=== PATIENT | female | born 1955 | race Caucasian/White ===

== ENCOUNTER 2016-12-21 09:14 | Emergency (ER) | payer OTHER ==
[2016-12-21] MEDS ORDERED: NORMAL SALINE 1000 ML 2,000 ML IV ONE (09:41)
--- NOTE | 2016-12-21 09:59 | RADIOLOGY REPORT (SQ) ---
EXAM DESCRIPTION: CHEST SINGLE VIEW COMPLETED DATE/TIME: 12/21/2016 9:50 am REASON FOR STUDY: bed 12 sepsis protocol COMPARISON: None. EXAM PARAMETERS: NUMBER OF VIEWS: One view. TECHNIQUE: Single frontal radiographic view of the chest acquired. RADIATION DOSE: NA LIMITATIONS: None. FINDINGS: LUNGS AND PLEURA: No opacities, masses or pneumothorax. No pleural effusion. MEDIASTINUM AND HILAR STRUCTURES: No masses. Contour normal. HEART AND VASCULAR STRUCTURES: Heart normal in size. Normal vasculature. BONES: No acute findings. HARDWARE: None in the chest. OTHER: No other significant finding. IMPRESSION: NO ACUTE RADIOGRAPHIC FINDING IN THE CHEST. TECHNICAL DOCUMENTATION: JOB ID: [id number]
[2016-12-21 10:21] LABS: HEMATOCRIT 49.2 % (36.0-47.0); HEMOGLOBIN 16.6 g/dL (12.0-15.5); HGB HCT DIFFERENCE 0.6; MEAN CORPUSCULAR HEMOGLOBIN 30.9 pg (27.0-33.4); MEAN CORPUSCULAR HGB CONC 33.8 g/dL (32.0-36.0); MEAN CORPUSCULAR VOLUME 91 fl (80-97); RED BLOOD COUNT 5.38 10^6/uL (3.72-5.28); RED CELL DISTRIBUTION WIDTH 12.8 % (11.5-14.0)
[2016-12-21 10:28] LABS: VENOUS BLOOD BASE EXCESS -1.1 mmol/L; VENOUS BLOOD HCO3 23.1 mmol/L (20-32); VENOUS BLOOD PCO2 37.2 mmHg (35-63); VENOUS BLOOD PH 7.41 (7.30-7.42)
[2016-12-21 10:36] LABS: PROTHROMBIN TIME 15.2 SEC (11.4-15.4)
[2016-12-21 10:43] LABS: ALANINE AMINOTRANSFERASE 10 U/L (9-52); ALBUMIN 3.5 g/dL (3.5-5.0); ALKALINE PHOSPHATASE 92 U/L (38-126); ANION GAP 19 (5-19); ASPARTATE AMINO TRANSFERASE 14 U/L (14-36); BILIRUBIN,DIRECT 0.6 mg/dL (0.0-0.4); BILIRUBIN,TOTAL 1.6 mg/dL (0.2-1.3); BLOOD UREA NITROGEN 15 mg/dL (7-20); CALCIUM 9.4 mg/dL (8.4-10.2); CARBON DIOXIDE 21 mmol/L (22-30); CHLORIDE 90 mmol/L (98-107); CREATINE KINASE 24 U/L (30-135); CREATININE RESULT 0.87 mg/dL (0.52-1.25); GLUCOSE 349 mg/dL (75-110); MAGNESIUM 1.4 mg/dL (1.6-2.3); SODIUM 129.8 mmol/L (137-145); TOTAL PROTEIN 6.2 g/dL (6.3-8.2)
[2016-12-21 10:46] LABS: BAND NEUTROPHILS % (MANUAL) 8 % (3-5); BASOPHILS % (MANUAL) 0 % (0-2); EOSINOPHILS % (MANUAL) 0 % (0-6); LYMPHOCYTES % (MANUAL) 3 % (13-45); TOTAL CELLS COUNTED 100; TOXIC GRANULATION 1+; TOXIC VACUOLATION PRESENT
[2016-12-21 10:47] LABS: PLATELET CLUMPS PRESENT
[2016-12-21 10:49] LABS: BURR CELLS SLIGHT; POIKILOCYTOSIS SLIGHT
[2016-12-21 10:55] LABS: WHITE BLOOD COUNT 31.9 10^3/uL (4.0-10.5)
[2016-12-21] MEDS ORDERED: NORMAL SALINE 1000 ML 500 ML IV ONE (10:55)
[2016-12-21 11:07] LABS: CREATINE KINASE MB 0.52 ng/mL (<4.55)
[2016-12-21 11:09] LABS: TROPONIN I < 0.012 ng/mL
[2016-12-21] MEDS ORDERED: PIPERACILLIN/TAZOBACTAM 4.5 GM VIAL IV ONE (11:20)
--- NOTE | 2016-12-21 11:34 | RADIOLOGY REPORT (SQ) ---
EXAM DESCRIPTION: VENOUS UNILATERAL LOWER COMPLETED DATE/TIME: 12/21/2016 11:26 am REASON FOR STUDY: new onset left leg pain, tachycardia COMPARISON: None. TECHNIQUE: Dynamic and static barney scale and color images acquired of the left leg venous system. Se lected spectral images acquired with additional compression and augmentation maneuvers. The contralat eral common femoral vein and saphenofemoral junction were also imaged. Images stored on PACS. LIMITATIONS: None. FINDINGS: LEFT COMMON FEMORAL: Normal phasicity, compression and augmentation. No visualized echogenic material on g ray scale. No defects on color images. FEMORAL: Normal compression and augmentation. No visualized echogenic material on barney scale. No defe cts on color images. POPLITEAL: Normal compression, augmentation. No visualized echogenic material on barney scale. No defec ts on color images. CALF VESSELS: Normal compression, augmentation. No visualized echogenic material on barney scale. No de fects on color images. GSV and SSV: Normal compression, augmentation. No visualized echogenic material on barney scale. No def ects on color images. ANY DEEP VENOUS INSUFFICIENCY: Not evaluated. ANY EVIDENCE OF POPLITEAL CYST: No. OTHER: No other significant finding. RIGHT COMMON FEMORAL VEIN AND SAPHENOFEMORAL JUNCTION: Normal phasicity, compression and augmentation. No visualized echogenic material on barney scale. No de fects on color images. IMPRESSION: NO EVIDENCE OF DVT OR SVT IN THE LEFT LEG. TECHNICAL DOCUMENTATION: JOB ID: [id number] [employer]- All Rights Reserved
[2016-12-21 11:49] LABS: APPEARANCE,URINE TURBID; BILIRUBIN,URINE NEGATIVE (NEGATIVE); GLUCOSE, URINE >=500 mg/dL (NEGATIVE); KETONES,URINE TRACE mg/dL (NEGATIVE); LEUKOCYTE ESTERASE,URINE LARGE (NEGATIVE); NITRITE,URINE NEGATIVE (NEGATIVE); PROTEIN,URINE >=500 mg/dL (NEGATIVE); URINE SPECIFIC GRAVITY 1.009; UROBILINOGEN,URINE NEGATIVE mg/dL (<2.0)
--- NOTE | 2016-12-21 12:01 | ER Document Report ---
ED General - General Chief Complaint: Weakness Stated Complaint: WEAKNESS Time Seen by Provider: 12/21/16 09:41 Notes: Patient is a 61 year old female who presents to the ED complaining of weakness and generalized fatigue for the past 4-5 days. She states that her and her recently drove down from [place] November 10- arriving in [place]. She states over the past couple of days she has had right calf pain that she describes as a constant ache without trauma, LE swelling. She denies any fevers, chills, shortness of breath, chest pain, difficulty breathing, nausea, vomting, abdominal pain, flank pain, pyuria, urinary frequency, urgency hematuria, vaginal bleeding or discharge. PMH: chronic back and left knee pain, IDDM, HTN, migraines PSH: denies SH: current smoker, denies etoh, drug use PCP is in [place] TRAVEL OUTSIDE OF THE [place] IN LAST 30 DAYS: No - Related Data Allergies/Adverse Reactions: No Known Allergies Allergy (Verified 12/21/16 10:08) Home Medications: Current Home Medications Insulin Aspart Protam & Aspart [Novolog Mix 70-30 Vial] 100 unit SQ DAILY [History] Metformin HCl 500 mg PO DAILY 12/21/16 [History] Past Medical History - Social History Smoking Status: Current Every Day Smoker Chew tobacco use (# tins/day): No Frequency of alcohol use: None Drug Abuse: None Family History: Reviewed & Not Pertinent - Past Medical History Cardiac Medical History: Reports: Hx Hypertension Endocrine Medical History: Reports: Hx Diabetes Mellitus Type 2 Renal/ Medical History: Denies: Hx Peritoneal Dialysis Surgical Hx: Negative Review of Systems - Review of Systems Constitutional: See HPI EENT: No symptoms reported Cardiovascular: No symptoms reported Respiratory: No symptoms reported Gastrointestinal: No symptoms reported Genitourinary: No symptoms reported Female Genitourinary: No symptoms reported Musculoskeletal: No symptoms reported Skin: No symptoms reported Hematologic/Lymphatic: No symptoms reported Neurological/Psychological: No symptoms reported -: Yes All other systems reviewed and negative Physical Exam - Vital signs Vitals: Temp Pulse Resp BP Pulse Ox 97.8 F 128 H 28 H 83/55 L 97 12/21/16 09:23 12/21/16 09:23 12/21/16 09:23 12/21/16 09:23 12/21/16 09:23 Interpretation: Hypotensive, Tachycardic. No: Febrile - repeat of rectal was 103.1 - Notes Notes: PHYSICAL EXAM GENERAL: Alert, interacts well. HEAD: Normocephalic, atraumatic. EYES: Pupils equal, round, and reactive to light. Extraocular movements intact. ENT: Oral mucosa moist, tongue midline. NECK: Full range of motion. Supple. Trachea midline. LUNGS: Clear to auscultation bilaterally, no wheezes, rales, or rhonchi. No respiratory distress. HEART: Regular rate and rhythm. No murmurs, gallops, or rubs. ABDOMEN: Soft, nondistended, nontender. No guarding, rebound, or rigidity.. Bowel sounds present in all 4 quadrants. EXTREMITIES: Moves all 4 extremities spontaneously. No edema, radial and dorsalis pedis pulses 2/4 bilaterally. No cyanosis. NEUROLOGICAL: Alert and oriented x4. Normal speech. PSYCH: Normal affect, normal mood. SKIN: Warm, dry, normal turgor. No rashes or lesions noted. - General General appearance: Appears well, Alert In distress: None Course - Re-evaluation Re-evalutation: 12/21/16 12:01 Patient is a 61-year-old female who presents complaining of generalized weakness and fatigue for the past couple of days. Given patient's travel history and tachycardia was concerning for possible DVT or PE. Patient does meet sepsis criteria therefore sepsis protocol was initiated. No evidence of DVT on ultrasound and no evidence of PE noted on CT of the chest. Patient does have lab eval significant for severe sepsis. CBC with white blood cell count 31.9 with left shift without anemia. Chemistry panel shows stable renal function, mild elevation in LFTs but stable. Lactic is 4.5. Patient has received Zosyn for broad-spectrum coverage. Urinalysis shows evidence of concern for urinary tract infection and associated pyelonephritis with presence of white blood cell clumps. CT the abdomen report was called to me by reading radiologist Dr. Malone who stated concern for bladder thickening with associated bilateral hydronephrosis and hydroureter worse on the right with associated fat stranding. Could not rule out evidence of bladder tumor or obstruction. No evidence of stones. Recommendation is for urology evaluation for cystoscopy and possible stent placement. She also noticed thickening of her endometrial tissue which might warrant biopsy given patient's age. educated patient on results and indication that transfer to a facility with urology is warranted given that we do not have urology filling station attendant. 12/21/16 13:30 Case has been discussed with medical records director Dr. Dillon. Patient has [facility] under attending Dr. Pelletier. Given patient's evidence of cyst serous sepsis without shock recommending urgent transfer for urology evaluation. Patient to be kept n.p.o. and to monitor in the department. Patient educated on status and agrees with plan 12/21/16 14:07 Patient one with bed assignment in [facility] in the stepdown unit and transport available for 4 PM 12/21/16 14:45 patient complaining of feeling cold even though she is under multiple blankets. Rectal temp was obtained and was 103.1, she has received ME acetaminophen. VSS 12/21/16 16:08 Patient required assistance for a dressing change at 1530 where she was hypotensive to 82/56 but recovered to 104/61 with positioning. She has received 3.5L total and remains tachycardic at 115 with a pressure of 85-95 systolic. At this time will initiate a levophed drip at 8mcg/min. [facility] updated of this status. Patient upgraded to ICU status under Dr. Eduardo Hyatt. Dr. Hare has requested addition of Vancomycin prior to transfer. 12/21/16 17:43 Flight team arrived at bedside, patient clinically feels well, HDS on levo gtt at 4mcg/min with systolics of 95-115, tachycardic 115-120. Assessed by Dr. Henderson at the bedside and stable for transport. - Vital Signs Vital signs: Temp Pulse Resp BP Pulse Ox 102.4 F H 128 H 29 H 131/70 H 97 12/21/16 15:51 12/21/16 09:23 12/21/16 17:21 12/21/16 17:21 12/21/16 17:21 - Laboratory Result Diagrams: 12/21/16 09:41 12/21/16 09:41 Laboratory results interpreted by me: 12/21/16 12/21/16 12/21/16 09:41 09:41 09:48 WBC 31.9 H* RBC 5.38 H Hgb 16.6 H Hct 49.2 H Seg Neuts % (Manual) 82 H Band Neutrophils % 8 H Lymphocytes % (Manual) 3 L Metamyelocytes % 1 H Abs Neuts (Manual) 29.0 H Abs Monocytes (Manual) 1.9 H Sodium 129.8 L Chloride 90 L Carbon Dioxide 21 L Glucose 349 H POC Glucose 339 H Lactic Acid Magnesium 1.4 L Total Bilirubin 1.6 H Direct Bilirubin 0.6 H Creatine Kinase 24 L Total Protein 6.2 L Urine Protein Urine Glucose (UA) Urine Ketones Urine Blood Ur Leukocyte Esterase 12/21/16 12/21/16 12/21/16 10:10 11:25 13:40 WBC RBC Hgb Hct Seg Neuts % (Manual) Band Neutrophils % Lymphocytes % (Manual) Metamyelocytes % Abs Neuts (Manual) Abs Monocytes (Manual) Sodium Chloride Carbon Dioxide Glucose POC Glucose Lactic Acid 4.5 H 4.4 H Magnesium Total Bilirubin Direct Bilirubin Creatine Kinase Total Protein Urine Protein >=500 H Urine Glucose (UA) >=500 H Urine Ketones TRACE H Urine Blood LARGE H Ur Leukocyte Esterase LARGE H 12/21/16 15:56 WBC RBC Hgb Hct Seg Neuts % (Manual) Band Neutrophils % Lymphocytes % (Manual) Metamyelocytes % Abs Neuts (Manual) Abs Monocytes (Manual) Sodium Chloride Carbon Dioxide Glucose POC Glucose 204 H Lactic Acid Magnesium Total Bilirubin Direct Bilirubin Creatine Kinase Total Protein Urine Protein Urine Glucose (UA) Urine Ketones Urine Blood Ur Leukocyte Esterase - Diagnostic Test Radiology reviewed: Image reviewed, Reports reviewed - EKG Interpretation by Me EKG shows normal: Sinus rhythm Rate: Tachycardia Rhythm: NSR When compared to previous EKG there are: No significant change Discharge - Discharge Clinical Impression: Pyelonephritis Sepsis Qualifiers: Sepsis type: sepsis due to unspecified organism Qualified Code(s): A41.9 - Sepsis, unspecified organism Condition: Stable Disposition: [facility]
--- NOTE | 2016-12-21 12:03 | RADIOLOGY REPORT (SQ) ---
EXAM DESCRIPTION: CTA CHEST COMPLETED DATE/TIME: 12/21/2016 11:44 am REASON FOR STUDY: tachycardia, recent long travel COMPARISON: None. TECHNIQUE: CT scan of the chest performed using helical scanning technique with dynamic intravenous contrast injection. Images reviewed with lung, soft tissue and bone windows. Reconstructed coronal and sagittal MPR images reviewed. Additional 3 dimensional post-processing performed to develop Maximal Intensity Projection images (OR P). All images stored on PACS. All CT scanners at this facility use dose modulation, iterative reconstruction, and/or weight based d osing when appropriate to reduce radiation dose to as low as reasonably achievable (ALARA). [facility]: Dose Right [facility]: CareDose [facility]: Dose Right [facility]: Teradose 4D [facility]: Qlue CONTRAST TYPE AND DOSE: contrast/concentration: Isovue 370.00 mg/ml; Total Contrast Delivered: 73.0 ml; Total Saline Delivered: 100.2 ml Contrast bolus optimized for the pulmonary arteries. Not diagnostic for the aorta. RENAL FUNCTION: Creatinine 0.87 RADIATION DOSE: Up-to-date CT equipment and radiation dose reduction techniques were employed. CTDIv ol: 16.5 - 21.5 mGy. DLP: 2744 mGy-cm. . LIMITATIONS: None. FINDINGS: LUNGS AND PLEURA: No masses, infiltrates, pneumothorax. No pleural effusions, calcificati ons. AORTA AND GREAT VESSELS: No aneurysm. Contrast bolus not optimized for the aorta. HEART: No pericardial effusion. No significant coronary artery calcifications. PULMONARY ARTERIES: No emboli visualized in the main pulmonary arteries or the segmental branches. HILAR AND MEDIASTINAL STRUCTURES: No identified masses or abnormal nodes. HARDWARE: None in the chest. UPPER ABDOMEN: No significant findings. Limited exam. THYROID AND OTHER SOFT TISSUES: Mild thyromegaly. No axillary adenopathy BONES: No acute or significant finding. 3D MIPS: Confirm above findings. OTHER: No other significant finding. IMPRESSION: NORMAL CTA OF THE CHEST. NO PULMONARY EMBOLI. COMMENT: Quality ID # [id number]: Final reports with documentation of one or more dose reduction techniques (e.g., Automated exposure control, adjustment of the mA and/or kV according to patient size, use of iterative reconstruction technique) TECHNICAL DOCUMENTATION: JOB ID: [id number] [employer]- All Rights Reserved
--- NOTE | 2016-12-21 12:18 | RADIOLOGY REPORT (SQ) ---
EXAM DESCRIPTION: CT ABD/PELVIS WITH IV ONLY COMPLETED DATE/TIME: 12/21/2016 11:44 am REASON FOR STUDY: sepsis COMPARISON: CT angio chest same date TECHNIQUE: CT scan of the abdomen and pelvis performed using helical scanning technique with dynamic intravenous contrast injection. No oral contrast. Images reviewed with lung, soft tissue, and bone windows. Reconstructed coronal and sagittal MPR images reviewed. Delayed images for evaluation of the urinary system also acquired. All images stored on PACS. All CT scanners at this facility use dose modulation, iterative reconstruction, and/or weight based d osing when appropriate to reduce radiation dose to as low as reasonably achievable (ALARA). [facility]: Dose Right [facility]: CareDose [facility]: Dose Right [facility]: Teradose 4D [facility]: Admeld CONTRAST TYPE AND DOSE: 73 mL Isovue 370- low osmolar. RENAL FUNCTION: Creatinine 0.87 RADIATION DOSE: 39.7 mGy. LIMITATIONS: None. FINDINGS: LOWER CHEST: No significant findings. No nodules or infiltrates. LIVER: Normal size. No masses. No dilated ducts. SPLEEN: Normal size. No focal lesions. PANCREAS: No masses. No significant calcifications. No adjacent inflammation or peripancreatic fluid collections. Pancreatic duct not dilated. GALLBLADDER: No identified stones by CT criteria. No inflammatory changes to suggest cholecystitis. ADRENAL GLANDS: No significant masses or asymmetry. RIGHT KIDNEY AND URETER: There is moderate right hydronephrosis and hydroureter down to the ureterove sical junction. No radiopaque stones. Mild perinephric and periureteral stranding in the retroperit costa fat. No solid right renal masses. A thick walled medial upper pole nonenhancing cyst is present, 3.7 x 2 cm in size. This is a bosniak 2F lesion, and 1 year follow-up CT with IV contrast is recommended for this lesion. LEFT KIDNEY AND URETER: No solid masses. No significant calcifications. Minimal left hydronephros is and hydroureter down to the ureterovesical junction. AORTA AND VESSELS: No abdominal aortic aneurysm. Very heavily calcified abdominal aorta and visceral branches with at least 50% stenosis of the proximal celiac artery, proximal SMA, and bilateral renal arteries. High-grade narrowing proximal right common iliac artery from calcific plaque. RETROPERITONEUM: No retroperitoneal adenopathy, hemorrhage or masses. BOWEL AND PERITONEAL CAVITY: No masses or inflammatory changes. No free fluid or peritoneal masses. APPENDIX: Normal. PELVIS: The urinary bladder is abnormal. Bladder is contracted with diffuse circumferential wall thi ckening. Tumor involvement is possible, with moderate right and mild left hydroureter and hydronephr osis from obstruction at the ureteral orifices. No bladder stones. No pelvic adenopathy. On sagittal image 55, endometrial stripe measures at least 14 mm in thickness. This is abnormal for a postmenopausal female. Endometrial biopsy should be considered. ABDOMINAL WALL: No masses. No hernias. BONES: No significant or acute findings. OTHER: This report was discussed with [facility] José in the emergency room IMPRESSION: Abnormal bladder wall thickening with bilateral hydronephrosis and hydroureter, right gr eater than left. Bladder tumor could not be excluded. Complex cyst right medial upper pole kidney for which 1 year follow-up cross-sectional imaging recomm ended Thickened endometrium. Endometrial biopsy should be considered. TECHNICAL DOCUMENTATION: JOB ID: [id number] Quality ID # [id number]: Final reports with documentation of one or more dose reduction techniques (e.g., Au tomated exposure control, adjustment of the mA and/or kV according to patient size, use of iterative reconstruction technique) 2010 [employer]- All Rights Reserved
[2016-12-21] MEDS ORDERED: NORMAL SALINE 1000 ML 1,000 ML IV PRN (14:05)
[2016-12-21] MEDS ORDERED: ACETAMINOPHEN 650 MG SUPP.RECT PR ONE (14:06)
[2016-12-21] MEDS ORDERED: NORMAL SALINE 1000 ML 1,000 ML IV ONE ×2 (15:09→16:53)
[2016-12-21] MEDS ORDERED: DEXTROSE 5%-WATER 250 ML with NOREPINEPHRINE BITARTRATE 4 MG IV PRN ×2 (15:59)
[2016-12-21] MEDS ORDERED: NOREPINEPHRINE BITARTRATE INJ/PF 4 MG/4 ML SDV IV ONE (16:08)
[2016-12-21] MEDS ORDERED: VANCOMYCIN HCL INJ 1000 MG VIAL IV ONE (16:45)
[2016-12-21 17:26] VITALS: BP 131/70
--- NOTE | 2016-12-21 22:58 | EKG REPORT ---
SEVERITY:- ABNORMAL ECG - SINUS TACHYCARDIA RIGHT BUNDLE BRANCH BLOCK : Confirmed by: Alex Herrera 21-Dec-2016 22:57:50
[2016-12-22 12:02] LABS: PATH REVIEW PATHOLOGIST REVIEWED
== END 2016-12-21 18:04 | disposition short-term general hospital (02) ==
LOC: ER 09:14
DX: N12 Tubulo-interstitial nephritis, not specified as acute or chronic (principal); A41.9 Sepsis, unspecified organism; R53.1 Weakness; R53.83 Other fatigue; Z79.899 Other long term (current) drug therapy; F17.200 Nicotine dependence, unspecified, uncomplicated
CPT/HCPCS: 93005; 99285; 96361; 96375; 96365; 36415; 87040; 87086; 82553; 82962; 82550; 83735; 85025; 85610; 87077; 87088; 80053; 81001; 84484; 87186; 82803; 83605; 93971; 71010; 71275; 74177; 93010; J3490; J7060; J7030; J3370; J2543

== ENCOUNTER → 2017-06-06 | Outpatient (CLI) | payer OTHER ==
--- NOTE | 2017-06-06 12:07 | RADIOLOGY REPORT (SQ) ---
EXAM DESCRIPTION: CT ABD/PELVIS COMBO COMPLETED DATE/TIME: 06/06/2017 9:12 am REASON FOR STUDY: N28.89 OTHER SPECIFIED DISORDERS OF KIDNEY AND URETER N39.0 URINARY TRACT I N28.89 OTHER SPECIFIED DISORDERS OF KIDNEY AND URETER N39.0 URINARY TRACT INFECTION, SITE NOT SPECIFIED R 31.9 HEMATURIA, UNSPECIFIED COMPARISON: CT angio chest, CT abdomen pelvis 12/21/2016 TECHNIQUE: CT scan of the abdomen and pelvis performed with and without intravenous contrast, and wi thout oral contrast. Contrasted imaging performed helical scanning technique and dynamic intravenous contrast injection. Images reviewed with lung, soft tissue, and bone windows. Reconstructed coronal a nd sagittal MPR images reviewed. Delayed images for evaluation of the urinary system also acquired. A ll images stored on PACS. All CT scanners at this facility use dose modulation, iterative reconstruction, and/or weight based d osing when appropriate to reduce radiation dose to as low as reasonably achievable (ALARA). [facility]: Dose Right [facility]: CareDose [facility]: Dose Right [facility]: Teradose 4D [facility]: [employer] CONTRAST TYPE AND DOSE: contrast/concentration: Isovue 370.00 mg/ml; Total Contrast Delivered: 92.0 ml; Total Saline Delivered: 70.0 ml RENAL FUNCTION: Creatinine 0.7 RADIATION DOSE: CT Rad equipment meets quality standard of care and radiation dose reduction techniq ues were employed. CTDIvol: 9.6 - 10.3 mGy. DLP: 2119 mGy-cm. . LIMITATIONS: None. FINDINGS: NON-CONTRASTED IMAGING: No significant renal or bladder calcifications. There is a thick- walled cyst in the medial right upper pole kidney, about 3.2 x 2.2 cm in size. POST-CONTRASTED IMAGING: LOWER CHEST: No significant findings. No nodules or infiltrates. LIVER: Normal size. No masses. No dilated ducts. SPLEEN: Normal size. No focal lesions. PANCREAS: No masses. No significant calcifications. No adjacent inflammation or peripancreatic fluid collections. Pancreatic duct not dilated. GALLBLADDER: No identified stones by CT criteria. No inflammatory changes to suggest cholecystitis. ADRENAL GLANDS: No significant masses or asymmetry. RIGHT KIDNEY AND URETER: In the upper pole right kidney a 3.2 x 2.2 cm complex cystic mass is present , with the thick irregular enhancing rim. Findings are worrisome for malignant nodule, Bosniak 3 les ion. No significant parenchymal or collecting system calcifications. No hydronephrosis or hydrour eter. LEFT KIDNEY AND URETER: No solid masses. Multiple less than 1 cm cysts left renal cortex. No signif icant calcifications. No hydronephrosis or hydroureter. AORTA AND VESSELS: Very heavily calcified abdominal aorta without aneurysm. Very heavy calcification at the origins of the renal arteries,. No gross flow significant stenosis right renal artery, at le ast 50 to 75% narrowing left proximal renal artery. Heavily calcified proximal celiac and SMA withou t high-grade stenosis. RETROPERITONEUM: No retroperitoneal adenopathy, hemorrhage or masses. BOWEL AND PERITONEAL CAVITY: No masses or inflammatory changes. No free fluid or peritoneal masses. APPENDIX: Normal. PELVIS: No mass. No free fluid. Normal bladder. Normal size female pelvic organs ABDOMINAL WALL: No masses. No hernias. BONES: Degenerative convex leftward lumbar curvature. Vacuum phenomenon bilateral SI joints. OTHER: No other significant finding. IMPRESSION: Worrisome complex cystic lesion medial right upper pole kidney, with thick irregular wal l and enhancement, at least Bosniak 3 lesion. No right or left hydronephrosis or hydroureter. No gross ureteral masses. TECHNICAL DOCUMENTATION: JOB ID: [id number] Quality ID # [id number]: Final reports with documentation of one or more dose reduction techniques (e.g., Au tomated exposure control, adjustment of the mA and/or kV according to patient size, use of iterative reconstruction technique) 2010 [employer]- All Rights Reserved Reading location - IP/workstation name: [facility]
== END ==
LOC: RAD 13:33
PROVIDERS: ATTEND Urology
DX: N28.89 Other specified disorders of kidney and ureter (principal); N39.0 Urinary tract infection, site not specified; R31.9 Hematuria, unspecified; R31.29 Other microscopic hematuria; N13.30 Unspecified hydronephrosis
CPT/HCPCS: 74178; 82565

== ENCOUNTER 2018-04-11 22:12 | Emergency (ER) | payer MEDICARE, OTHER ==
[~2018-04-11 22:12] MED LIST: ASPIRIN 81 MG TABLET, CHEWABLE ONE; CLOPIDOGREL BISULFATE 300 MG TABLET ONE; ENOXAPARIN SODIUM INJ 30 MG/0.3 ML DISP.SYRIN ONE; TENECTEPLASE INJ 50 MG KIT IV ONE
[2018-04-11 23:10] LABS: ABSOLUTE BASOPHILS # (AUTO) 0.1 10^3/uL (0.0-0.2); ABSOLUTE MONOCYTES (AUTO) 1.7 10^3/uL (0.1-1.4); ABSOLUTE NEUT (AUTO) 15.1 10^3/uL (1.7-8.2); BASOPHILS % (AUTO) 0.6 % (0-2); EOSINOPHILS % (AUTO) 0.1 % (0-6); HEMATOCRIT 50.6 % (36.0-47.0); HEMOGLOBIN 17.6 g/dL (12.0-15.5); LYMPHOCYTES % (AUTO) 10.6 % (13-45); MEAN CORPUSCULAR HEMOGLOBIN 31.2 pg (27.0-33.4); MEAN CORPUSCULAR HGB CONC 34.7 g/dL (32.0-36.0); MEAN CORPUSCULAR VOLUME 90 fl (80-97); MONOCYTES % (AUTO) 8.9 % (3-13); PLATELET COUNT 263 10^3/uL (150-450); RED BLOOD COUNT 5.63 10^6/uL (3.72-5.28); RED CELL DISTRIBUTION WIDTH 13.3 % (11.5-14.0); SEGMENTED NEUTROPHILS % (AUTO) 79.8 % (42-78); TOTAL CELLS COUNTED % (AUTO) 100 %
[2018-04-11 23:30] LABS: ALANINE AMINOTRANSFERASE 18 U/L (9-52); ALKALINE PHOSPHATASE 100 U/L (38-126); ANION GAP 18 (5-19); ASPARTATE AMINO TRANSFERASE 37 U/L (14-36); BILIRUBIN,DIRECT 0.3 mg/dL (0.0-0.4); BILIRUBIN,TOTAL 1.1 mg/dL (0.2-1.3); BLOOD UREA NITROGEN 14 mg/dL (7-20); CALCIUM 9.3 mg/dL (8.4-10.2); CARBON DIOXIDE 20 mmol/L (22-30); CHLORIDE 92 mmol/L (98-107); LIPASE 64.3 U/L (23-300); POTASSIUM 4.3 mmol/L (3.6-5.0); SODIUM 130.3 mmol/L (137-145); TOTAL PROTEIN 6.8 g/dL (6.3-8.2)
[2018-04-11] MEDS ORDERED: ASPIRIN 81 MG TABLET, CHEWABLE PO ONE (23:32)
--- NOTE | 2018-04-11 23:37 | ER Document Report ---
ED General - General Chief Complaint: General Weakness Stated Complaint: WEAKNESS,JAW PAIN,LEFT SIDE FLANK PAIN Time Seen by Provider: 04/11/18 23:21 Notes: Patient is a 62-year-old female presents with complaint of pain into her left back and shoulder blade. She says a little bit of the pain does radiate up towards her neck and into her left shoulder. She denies any chest pain to me. Said pain started a few hours ago when she laid down and she felt pain into her left lower back. No difficulty breathing. No vomiting. No diaphoresis. Patient's heart rates a little fast and she says that she is been stressed emotionally upset since the loss of her dog. She does smoke. She does have a history of high blood pressure and diabetes. She has not been on her medications for some time now. No history of cardiac stress testing. No previous history of SC. No recent fevers or infections. No other complaints at this time. TRAVEL OUTSIDE OF THE [place] IN LAST 30 DAYS: No - Related Data Allergies/Adverse Reactions: No Known Allergies Allergy (Verified 12/21/16 10:08) Past Medical History - Social History Smoking Status: Current Every Day Smoker Frequency of alcohol use: None Drug Abuse: None Family History: Reviewed & Not Pertinent - Past Medical History Cardiac Medical History: Reports: Hx Hypertension Endocrine Medical History: Reports: Hx Diabetes Mellitus Type 2 Renal/ Medical History: Denies: Hx Peritoneal Dialysis Review of Systems - Review of Systems Notes: My Normal Review Basic REVIEW OF SYSTEMS: CONSTITUTIONAL : Denies fever, chills, or sweats. Denies recent illness. CARDIOVASCULAR: Denies chest pain on initial questioning by me. RESPIRATORY: Denies cough, cold, or chest congestion. Denies shortness of breath, difficulty breathing, or wheezing. GASTROINTESTINAL: Denies abdominal pain. Denies nausea, vomiting, or diarrhea. MUSCULOSKELETAL: Pain behind left shoulder blade. SKIN: Denies rash or skin lesions. HEMATOLOGIC : Denies easy bruising or bleeding. NEUROLOGICAL: Denies altered mental status or loss of consciousness. Denies headache. Denies weakness or paralysis or loss of use of either side. Denies problems with gait or speech. Denies sensory or motor loss. ALL OTHER SYSTEMS REVIEWED AND NEGATIVE. Physical Exam - Vital signs Vitals: Temp Pulse Resp BP Pulse Ox 99.0 F 117 H 20 111/70 96 04/11/18 22:25 04/11/18 22:25 04/11/18 22:25 04/11/18 22:25 04/11/18 22:25 - Notes Notes: General Appearance: Well nourished, alert, cooperative, no acute distress, no obvious discomfort. Well-appearing. Vitals: reviewed, See vital signs table. Head: no swelling or tenderness to the head Eyes: PERRL, EOMI, Conjuctiva clear Mouth: No decreasd moisture Lungs: No wheezing, No rales, No rhonci, No accessory muscle use, good air exchange bilaterally. Heart: Tachycardic rate, Regular rythm, No murmur, no rub Back: Some reproducible pain to palpation just medial to the left shoulder blade. Of the push very hard to produce pain so is very difficult to tell if this is truly reproducible pain to palpation. Abdomen: Normal BS, soft, No rigidity, No abdominal tenderness, No guarding, no rebound, no abdominal masses, no organomegaly Extremities: strength 5/5 in all extremities, good pulses in all extremities, no swelling or tenderness in the extremities, no edema. Skin: warm, dry, appropriate color, no rash Neuro: speech clear, oriented x 3, normal affect, responds appropriately to questions. Course - Re-evaluation Re-evalutation: 04/11/18 23:28 EKG was initially obtained in triage and called a STEMI in triage. Patient was brought back to room. I saw the patient in the room immediately when she was brought back. Patient says that she does not have any chest pain. She says she has pain just in her left shoulder blade area. She says she felt the pain in the left shoulder blade when she laid back. She says she feels like it is more muscular skeletal and that is worse when she moves. Patient has no previous history of SC but does have a history of diabetes, cigarette smoking, and high blood pressure. Patient denies any recent stress test. Clinically the patient looks very well. She is not sweating. She is not short of breath. She appears to be in little pain. She is not vomiting. Her EKG does have approximately [address] segment elevation in leads V5 and V6 with some depression in leads V2 and V3. She is a bit tachycardic which she says is probably stress related but she is has been under a lot of stress recently and has been anxious because of loss of her dog. Staff are activated STEMI protocol. I told the patient and staff I want to hold thrombolytics until I spoke with machine setter automatic as the EKG has some concerning findings however the patient medically does not look con sistent with that of a STEMI currently and there is always a bleeding risk when giving the thrombolytics. I spoke with Dr. Lucas, banquet lead at [facility]. I asked me to look at the EKG. He gave me his phone number and I have just sent images of the EKG over to him. 04/11/18 23:37 Dr. Lucas reviewed the images as sent by phone. He agrees that this could be related to a bundle branch block however could also be a STEMI. He says that they cannot get patient here by flight and therefore will be some delay in heart cath and therefore he says if the patient does not have contraindications to thrombolysis to go ahead and consider thrombolysis. I will speak to the patient about thrombolysis. 04/11/18 23:45 I went and reviewed all contraindications for thrombolytics. Patient has none. I explained to her my discussion with the machine setter automatic and my recommendation to go forward with thrombolytics at this time. She is agreeable to this. Also spoke to the nurse who spoke to patient in triage. Patient gave the nurse a different story in triage which is understanding why she went forward with activating the STEMI after the initial physician looked at the EKG. In triage she told the nurse that she actually had some chest pain radiating to the left shoulder blade and going down the left arm and into the neck. I asked her again because patient originally denied any chest pain to me initially and also initially said it has been ongoing for a few hours; however, patient now admits that the pain has been ongoing most the day and that she did have some pain in the left side of her chest that radiated to her left back and down her left arm which she still has some now. Will start patient on nitro drip. I ordered the thrombolytics as well as the Plavix and Lovenox per our thrombolytic protocol for acute STEMI. Transport is on its way here now. I did review patient's chest x-ray and is no evidence of widened mediastinum. Patient is not severely hypertensive. I do not suspect aortic dissection at this time. 04/12/18 00:05 Transport team is here. Patient has been loaded onto the stretcher. Patient has nitro drip running. She still has some pain. Clinically she continues look very well. Patient is stable for transport. Pressure stable. Heart rate still slightly tachycardic. 04/12/18 05:53 - Vital Signs Vital signs: Temp Pulse Resp BP Pulse Ox 99.0 F 117 H 28 H 128/91 H 92 04/11/18 22:25 04/11/18 22:25 04/11/18 23:59 04/11/18 23:59 04/11/18 23:58 - Laboratory Result Diagrams: 04/11/18 22:45 04/11/18 22:45 Laboratory results interpreted by me: 04/11/18 04/11/18 04/11/18 22:45 22:45 22:45 WBC 19.0 H RBC 5.63 H Hgb 17.6 H Hct 50.6 H Seg Neutrophils % 79.8 H Lymphocytes % 10.6 L Absolute Neutrophils 15.1 H Absolute Monocytes 1.7 H Sodium 130.3 L Chloride 92 L Carbon Dioxide 20 L Glucose 490 H* AST 37 H Creatine Kinase 183 H CK-MB (CK-2) Urine Protein Urine Glucose (UA) Urine Ketones Urine Blood Ur Leukocyte Esterase 04/11/18 04/11/18 22:45 23:36 WBC RBC Hgb Hct Seg Neutrophils % Lymphocytes % Absolute Neutrophils Absolute Monocytes Sodium Chloride Carbon Dioxide Glucose AST Creatine Kinase CK-MB (CK-2) 4.74 H Urine Protein 100 H Urine Glucose (UA) >=500 H Urine Ketones 20 H Urine Blood MODERATE H Ur Leukocyte Esterase TRACE H - EKG Interpretation by Me Additional EKG results interpreted by me: 04/11/18 23:56 EKG is reviewed and interpreted by me. EKG shows sinus tachycardia with a rate of 118 bpm. Patient has a right bundle branch block which is old in comparison to previous EKG. Patient does have some ST segment elevation in leads I, V5 and V6 and some ST segment depressions in leads V2 and V3. These are concerning for possible ST elevation SC. Old EKG for comparison is from December 21, 2016. TX interval is within normal range. QRS duration and QT intervals are prolonged. Posterior EKG shows sinus tachycardia with a rate of 116 bpm. Patient has still some ST segment elevation in leads I, V5 and V6 and still has some ST segment depression in leads V2 and V3 V1. TX interval is within normal range. QRS duration QT intervals are prolonged. Discharge - Discharge Clinical Impression: STEMI (ST elevation myocardial infarction) Qualifiers: Involved coronary artery: unspecified coronary artery Qualified Code(s): I21.3 - ST elevation (STEMI) myocardial infarction of unspecified site Condition: Stable Disposition: [facility]
[2018-04-11 23:41] LABS: GLUCOSE 490 mg/dL (75-110)
[2018-04-11] MEDS ORDERED: NITROGLYCERIN/D5W 50 MG/250 ML RTUINJ IV ONE (23:42)
[2018-04-11 23:54] LABS: APPEARANCE,URINE SLIGHTLY-CLOUDY; BILIRUBIN,URINE NEGATIVE (NEGATIVE); COLOR,URINE YELLOW; GLUCOSE, URINE >=500 mg/dL (NEGATIVE); KETONES,URINE 20 mg/dL (NEGATIVE); LEUKOCYTE ESTERASE,URINE TRACE (NEGATIVE); NITRITE,URINE NEGATIVE (NEGATIVE); PROTEIN,URINE 100 mg/dL (NEGATIVE); URINE SPECIFIC GRAVITY 1.028; UROBILINOGEN,URINE NEGATIVE mg/dL (<2.0)
[2018-04-12 00:03] LABS: CREATINE KINASE MB 4.74 ng/mL (<4.55)
[2018-04-12 00:15] VITALS: BP 128/91
[2018-04-12] MEDS ORDERED: CLOPIDOGREL BISULFATE 300 MG TABLET PO ONE (00:15)
[2018-04-12] MEDS ORDERED: TENECTEPLASE INJ 50 MG KIT IV ONE ×2 (00:15)
[2018-04-12 00:17] LABS: TROPONIN I 7.85 ng/mL
[2018-04-12] MEDS ORDERED: ENOXAPARIN SODIUM INJ 80 MG/0.8 ML DISP.SYRIN SUBCUT ONE (00:30)
[2018-04-12] MEDS ORDERED: ENOXAPARIN SODIUM INJ 100 MG/1 ML DISP.SYRIN SUBCUT ONE (00:45)
--- NOTE | 2018-04-12 01:26 | RADIOLOGY REPORT (SQ) ---
EXAM DESCRIPTION: XR CHEST 1 VIEW COMPLETED DATE/TME: 04/11/2018 00:00 CLINICAL HISTORY: 62 years Female, JAW PAIN/BACK PAIN/CHEST PAIN COMPARISON: None. NUMBER OF VIEWS/TECHNIQUE: 1/AP FINDINGS: Adequate lung volume, clear parenchyma, normal cardiac silhouette, atherosclerosis, and intact bony thorax. IMPRESSION: No acute cardiopulmonary findings.
--- NOTE | 2018-04-12 13:41 | EKG REPORT ---
SEVERITY:- ABNORMAL ECG - SINUS TACHYCARDIA RBBB AND LPFB INFERIOR INFARCT, AGE INDETERMINATE LATERAL INFARCT, ACUTE : Confirmed by: Karen Hewitt MD 12-Apr-2018 13:40:12
== END 2018-04-12 00:20 | disposition short-term general hospital (02) ==
LOC: ER 22:12
DX: I21.3 ST elevation (STEMI) myocardial infarction of unspecified site (principal); I10 Essential (primary) hypertension; I45.10 Unspecified right bundle-branch block; R00.0 Tachycardia, unspecified; E11.9 Type 2 diabetes mellitus without complications; M25.512 Pain in left shoulder; M54.5 Low back pain; F17.210 Nicotine dependence, cigarettes, uncomplicated
CPT/HCPCS: 93005; 99285; 96375; 96365; 36415; 82553; 82550; 83690; 85025; 80053; 81001; 84484; 71045; 93010; J3101; A9270 ×2; J1650; J3490